=== PATIENT | male | born 1960 | race Caucasian/White ===

== ENCOUNTER 2018-02-05 12:47 | Emergency (ER) | payer MEDICARE, MEDICAID ==
[2018-02-05 13:00] VITALS: BP 96/56
[2018-02-05] MEDS ORDERED: Sodium Chloride 0.9% 10 ML Syringe FLUSH PRN (13:09)
[2018-02-05] MEDS ORDERED: Sodium Chloride 0.9% 1,000 ML IV SCH (13:15)
--- NOTE | 2018-02-05 15:05 | EDM.PDOC ---
ED HPI GENERAL MEDICAL PROBLEM - General Chief Complaint: Syncope Stated Complaint: HIGH/LOW BLOOD PRESSURES-LIGHT HEADED Time Seen by Provider: 02/05/18 12:59 Source of Information: Reports: Patient History Limitations: Reports: No Limitations - History of Present Illness INITIAL COMMENTS - FREE TEXT/NARRATIVE: The patient presents being lightheaded and dizzy for a few days. He had nausea and vomiting a couple days ago. That is better now. He has no fever, chills, cough, congestion or runny nose. He has no chest pain or shortness of breath. He has no abdominal pain, nausea or vomiting. He does admit to drinking daily. Onset: Gradual Duration: Day(s): Severity: Moderate Improves with: Reports: Immobilization Worsens with: Reports: Movement Associated Symptoms: Reports: Nausea/Vomiting. Denies: Chest Pain, Fever/Chills , Headaches, Shortness of Breath - Related Data Allergies Allergy/AdvReac Type Severity Reaction Status Date / Time No Known Allergies Allergy Verified 02/05/18 13:00 Home Meds: Home Meds Aspirin [Jagdeep Chewable] 81 mg PO DAILY 05/29/14 [History] Hydrochlorothiazide 25 mg PO DAILY 02/05/18 [History] Lisinopril 40 mg PO DAILY 02/05/18 [History] Past Medical History - Past Health History Medical/Surgical History: Denies Medical/Surgical History Social & Family History - Tobacco Use Smoking Status *Q: Current Some Day Smoker Years of Tobacco use: 40 Packs/Tins Daily: 0.5 - Recreational Drug Use Recreational Drug Use: No ED ROS GENERAL - Review of Systems Review Of Systems: See Below Constitutional: Reports: No Symptoms HEENT: Reports: No Symptoms Respiratory: Reports: No Symptoms Cardiovascular: Reports: Lightheadedness Endocrine: Reports: No Symptoms GI/Abdominal: Reports: Nausea, Vomiting. Denies: Abdominal Pain : Reports: No Symptoms Musculoskeletal: Reports: No Symptoms Skin: Reports: No Symptoms Neurological: Reports: Dizziness ED EXAM, DIZZINESS - Physical Exam Exam: See Below Exam Limited By: No Limitations General Appearance: Alert, No Apparent Distress Ears: Normal External Exam Nose: Normal Inspection Head Exam: Atraumatic, Normocephalic Neck: Normal Inspection Respiratory/Chest: No Respiratory Distress, Lungs Clear, Normal Breath Sounds Cardiovascular: Regular Rate, Rhythm, No Edema, No Murmur GI/Abdominal: Soft, Non-Tender, No Organomegaly, No Mass Neurological: Alert, No Motor/Sensory Deficits, Oriented x 3 Course - Vital Signs Last Recorded V/S: Last Vital Signs Temp 98.1 F 02/05/18 12:58 Pulse 96 02/05/18 12:58 Resp 16 02/05/18 12:58 BP 96/56 L 02/05/18 12:58 Pulse Ox 95 02/05/18 12:58 - Orders/Labs/Meds Orders: Active Orders 24 hr Category Date Time Status Cardiac Monitoring [RC] . DIRECTED Care 02/05/18 13:09 Active EKG Documentation Completion [RC] STAT Care 02/05/18 13:11 Active Peripheral IV Care [RC] . DIRECTED Care 02/05/18 13:11 Active Sodium Chloride 0.9% [Normal Saline] 1,000 ml Med 02/05/18 13:15 Active IV .BOLUS Sodium Chloride 0.9% [Saline Flush] Med 02/05/18 13:09 Active 10 ml FLUSH ASDIRECTED PRN Peripheral IV Insertion Adult [OM.PC] Stat Oth 02/05/18 13:09 Ordered Medication Orders Sodium Chloride (Normal Saline) 1,000 mls @ 1,000 mls/hr IV .BOLUS LISBET Last Admin: 02/05/18 13:21 Dose: 1,000 mls/hr Sodium Chloride (Saline Flush) 10 ml FLUSH ASDIRECTED PRN PRN Reason: Keep Vein Open Last Admin: 02/05/18 13:17 Dose: 10 ml Labs: Laboratory Tests 02/05/18 02/05/18 Range/Units 13:15 13:15 WBC 9.69 H (4.23-9.07) K/mm3 RBC 4.67 (4.63-6.08) M/mm3 Hgb 15.4 (13.7-17.5) gm/L Hct 42.9 (40.1-51.0) % MCV 91.9 (79.0-92.2) fl MCH 33.0 H (25.7-32.2) pg MCHC 35.9 H (32.2-35.5) g/dl RDW Std Deviation 43.8 (35.1-43.9) fL Plt Count 278 (163-337) K/mm3 MPV 8.7 L (9.4-12.3) fl Neut % (Auto) 72.1 H (34.0-67.9) % Lymph % (Auto) 10.2 L (21.8-53.1) % [place] % (Auto) 17.3 H (5.3-12.2) % Eos % (Auto) 0.1 L (0.8-7.0) Baso % (Auto) 0.1 (0.1-1.2) % Neut # (Auto) 6.98 H (1.78-5.38) K/mm3 Lymph # (Auto) 0.99 L (1.32-3.57) K/mm3 [place] # (Auto) 1.68 H (0.30-0.82) K/mm3 Eos # (Auto) 0.01 L (0.04-0.54) K/mm3 Baso # (Auto) 0.01 (0.01-0.08) K/mm3 Manual Slide Review Normal smear Sodium 121 L (136-145) mEq/L Potassium 3.0 L (3.5-5.1) mEq/L Chloride 79 L (98-107) mEq/L Carbon Dioxide 30 (21-32) mEq/L Anion Gap 15.0 (5-15) BUN 51 H (7-18) mg/dL Creatinine 4.1 H (0.7-1.3) mg/dL Est Cr Clr Drug Dosing 22.08 mL/min Estimated GFR (MDRD) 15 (>60) mL/min BUN/Creatinine Ratio 12.4 L (14-18) Glucose 175 H (74-106) mg/dL Calcium 9.2 (8.5-10.1) mg/dL Total Bilirubin 0.8 (0.2-1.0) mg/dL AST 26 (15-37) U/L ALT 29 (16-63) U/L Alkaline Phosphatase 41 L (46-116) U/L Troponin I < 0.017 (0.00-0.056) ng/mL Total Protein 7.4 (6.4-8.2) g/dl Albumin 3.9 (3.4-5.0) g/dl Globulin 3.5 gm/dL Albumin/Globulin Ratio 1.1 (1-2) Ethyl Alcohol 0.12 (0.00) gm% Meds: Medications Generic Name Dose Route Start Last Admin Trade Name Justusq PRN Reason Stop Dose Admin Sodium Chloride 1,000 mls @ 1,000 mls/hr 02/05/18 13:15 02/05/18 13:21 Normal Saline IV 1,000 mls/hr .BOLUS LISBET Administration Sodium Chloride 10 ml 02/05/18 13:09 02/05/18 13:17 Saline Flush FLUSH 10 ml ASDIRECTED PRN Administration Keep Vein Open - Re-Assessments/Exams Free Text/Narrative Re-Assessment/Exam: 02/05/18 15:08 I ordered an IV NS 1L bolus, labs and an EKG. His EKG shows a NSR with no acute changes. His ETOH is elevated at 0.12. His WBC is elevated at 9.69. His sodium is elevated at 121. His K was low at 3. His chloride was low at 79. His creatinine was elevated at 4.1. His GFR is low at 15. His glucose is elevated at 175. His troponin is negative. I informed him that he is in renal failure and he will need to be admitted. He does not want to be admitted. I informed him that he could get worse and potentially from the renal failure. He still wants to go. I will let the rest of the bolus go in and discharge him home to follow up with his doctor Dr Wallace. Departure - Departure Time of Disposition: 15:15 Disposition: Home, Self-Care 01 Condition: Good Clinical Impression: Alcoholism, Hyponatremia, Hypokalemia Renal failure, acute Qualifiers: Acute renal failure type: unspecified Qualified Code(s): N17.9 - Acute kidney failure, unspecified Alcohol intoxication Qualifiers: Complication of substance-induced condition: uncomplicated Qualified Code(s): F10.920 - Alcohol use, unspecified with intoxication, uncomplicated - Discharge Information Referrals: Eva Ricci MD [Primary Care Provider] - 1 Week Additional Instructions: Drink plenty of water. Try to drink about eight 8 ounces glasses of water per day. Follow up with Dr Wallace within a week. Please return if you are worse. - My Orders Last 24 Hours: My Active Orders 02/05/18 13:09 Cardiac Monitoring [RC] . DIRECTED Sodium Chloride 0.9% [Saline Flush] 10 ml FLUSH ASDIRECTED PRN Peripheral IV Insertion Adult [OM.PC] Stat 02/05/18 13:11 EKG Documentation Completion [RC] STAT Peripheral IV Care [RC] . DIRECTED 02/05/18 13:15 Sodium Chloride 0.9% [Normal Saline] 1,000 ml IV .BOLUS - Assessment/Plan Last 24 Hours: My Active Orders 02/05/18 13:09 Cardiac Monitoring [RC] . DIRECTED Sodium Chloride 0.9% [Saline Flush] 10 ml FLUSH ASDIRECTED PRN Peripheral IV Insertion Adult [OM.PC] Stat 02/05/18 13:11 EKG Documentation Completion [RC] STAT Peripheral IV Care [RC] . DIRECTED 02/05/18 13:15 Sodium Chloride 0.9% [Normal Saline] 1,000 ml IV .BOLUS
== END 2018-02-05 15:27 | disposition home or self-care (01) ==
LOC: JD.ED 12:47
DX: N17.9 Acute kidney failure, unspecified (principal); F10.120 Alcohol abuse with intoxication, uncomplicated; E87.1 Hypo-osmolality and hyponatremia; E87.6 Hypokalemia; F17.210 Nicotine dependence, cigarettes, uncomplicated; Z79.82 Long term (current) use of aspirin; Z79.899 Other long term (current) drug therapy
CPT/HCPCS: 36415; 80053; 84484; 85025; 93005; 96360; 96361; 99284; G0480; J7040; J7050; 93010